=== PATIENT | female | born 1960 | race Two or more races ===

== ENCOUNTER 2024-01-01 16:00 | Outpatient (RCR) | payer MEDICAID, SELFPAY ==
--- NOTE | 2023-12-17 16:06 | PT.ODAYNRPT ---
PT Outpatient Daily Note OP Daily Note Outpatient Physical Therapy Treatment Date: 12/17/23 Visit Reasons: Right shoulder pain Subjective: Pt reports R shoulder is doing ok, has some pain. Objective: Please see flow sheet for ther ex list. Assessment: Pt c/o soreness post IR stretches. Plan: Continue with pOC. Length of Time (minutes) of Treatment: 30 Minutes Procedure Charges Therapeutic Exercise 30 minutes: Yes
--- NOTE | 2023-12-19 18:01 | PT.ODAYNRPT ---
PT Outpatient Daily Note OP Daily Note Outpatient Physical Therapy Treatment Date: 12/19/23 Visit Reasons: Right shoulder pain Subjective: Overall it's doing well Objective: See F/S for therex Assessment: Increased supine reach into FF and abduction with 2 lb DB Plan: Continue with visits to strengthen R shoulder Length of Time (minutes) of Treatment: 30 Minutes Procedure Charges Therapeutic Exercise 30 minutes: Yes
--- NOTE | 2023-12-24 16:06 | PT.ODAYNRPT ---
PT Outpatient Daily Note OP Daily Note Outpatient Physical Therapy Treatment Date: 12/24/23 Visit Reasons: Right shoulder pain Subjective: She can reach higher with less pain and better strength Objective: See F/S for therex Assessment: Increased supine reach into FF and abduction with 2 lb DB Plan: Continue with visits to strengthen R shoulder Length of Time (minutes) of Treatment: 30 Minutes Procedure Charges Therapeutic Exercise 30 minutes: Yes
--- NOTE | 2023-12-26 15:15 | PT.ODAYNRPT ---
PT Outpatient Daily Note OP Daily Note Outpatient Physical Therapy Treatment Date: 12/26/23 Visit Reasons: Right shoulder pain Subjective: She can reach higher with less pain and better strength Objective: See F/S for therex Assessment: Increased supine reach into FF and abduction with 3 lb DB Plan: Continue with visits to strengthen R shoulder Length of Time (minutes) of Treatment: 30 Minutes Procedure Charges Therapeutic Exercise 30 minutes: Yes
--- NOTE | 2023-12-30 17:46 | PT.ODAYNRPT ---
PT Outpatient Daily Note OP Daily Note Outpatient Physical Therapy Treatment Date: 12/30/23 Visit Reasons: Right shoulder pain Subjective: She can reach higher with less pain and better strength Objective: See F/S for therex Assessment: Increased supine reach into FF and abduction with 3 lb DB Plan: Continue with visits to strengthen R shoulder Length of Time (minutes) of Treatment: 30 Minutes Procedure Charges Therapeutic Exercise 30 minutes: Yes
--- NOTE | 2024-01-01 18:33 | PT.ODAYNRPT ---
PT Outpatient Daily Note OP Daily Note Outpatient Physical Therapy Treatment Date: 01/01/24 Visit Reasons: Right shoulder pain Subjective: She can reach higher with less pain and better strength Objective: See F/S for therex Assessment: Increased supine reach into FF and abduction with 3 lb DB Plan: Continue with visits to strengthen R shoulder Length of Time (minutes) of Treatment: 30 Minutes Procedure Charges Therapeutic Exercise 30 minutes: Yes
== END 2024-01-11 23:59 | disposition home or self-care (01) ==
LOC: CPTX 16:00
PROVIDERS: PCP Orthopaedic Surgery; Referring Provider Orthopaedic Surgery; Visit Provider Orthopaedic Surgery
DX: M25.511 Pain in right shoulder (principal); S46.001D Unspecified injury of muscle(s) and tendon(s) of the rotator cuff of right shoulder, subsequent encounter; X50.0XXD Overexertion from strenuous movement or load, subsequent encounter
CPT/HCPCS: 97110

== ENCOUNTER 2024-01-22 16:00 | Outpatient (RCR) | payer MEDICAID, SELFPAY ==
--- NOTE | 2024-01-13 17:10 | PT.ODAYNRPT ---
PT Outpatient Daily Note OP Daily Note Outpatient Physical Therapy Treatment Date: 01/13/24 Visit Reasons: Right shoulder pain Subjective: She can reach higher with less pain and better strength but pain with reaching behind the back. Objective: See F/S for therex Assessment: Increased supine reach into FF and abduction with 3 lb DB. Reaching behind the back to about L4 with shoulder pain Plan: Continue with visits to strengthen R shoulder Length of Time (minutes) of Treatment: 30 Minutes Procedure Charges Therapeutic Exercise 30 minutes: Yes
--- NOTE | 2024-01-15 17:16 | PT.ODAYNRPT ---
PT Outpatient Daily Note OP Daily Note Outpatient Physical Therapy Treatment Date: 01/15/24 Visit Reasons: Right shoulder pain Subjective: She can reach higher with less pain and better strength but pain with reaching behind the back. Objective: See F/S for therex Assessment: Increased supine reach into FF and abduction with 3 lb DB. Reaching behind the back to about L4 with shoulder pain Plan: Continue with visits to strengthen R shoulder Length of Time (minutes) of Treatment: 30 Minutes Procedure Charges Therapeutic Exercise 30 minutes: Yes
--- NOTE | 2024-01-20 16:24 | PT.ODAYNRPT ---
PT Outpatient Daily Note OP Daily Note Outpatient Physical Therapy Treatment Date: 01/20/24 Visit Reasons: Right shoulder pain Subjective: She can reach higher with less pain and better strength but pain with reaching behind the back. Objective: See F/S for therex Assessment: Increased supine reach into FF and abduction with 3 lb DB. Reaching behind the back to about L4 with shoulder pain Plan: Reassess Length of Time (minutes) of Treatment: 30 Minutes Procedure Charges Therapeutic Exercise 30 minutes: Yes
--- NOTE | 2024-01-22 17:06 | PT.ODS1RPT ---
PT OP Progress/Discharge Note Date of Service: 01/22/24 Progress Note/DC Note Progress Note/Discharge Note: DC Note Patient Information Visit Reasons: Right shoulder pain Service Continue Service or Discharge: Discharge Discharge Date: 01/22/24 Status Subjective: She can reach higher with less pain and better strength but pain with reaching behind the back. Objective: See F/S for therex R shoulder ArOM: FF: 145 deg Abd: full ER: 90 deg HBB: to L5 Strength: 4/5 in all planes Assessment: Pt has attended visits with very good progress to meet all therapy goals. Pt has improved AROM in all planes to meet that goal and can reach OH x10 without pain in order to reach tall cabinets. Pt is independent with ADL's and HH chores with good R shoulder strength. She has a theraband and is independent with HEP. Plan: D/C with HEP Procedure Charges Therapeutic Exercise 30 minutes: Yes
== END 2024-02-11 23:59 | disposition home or self-care (01) ==
LOC: CPTX 16:00
PROVIDERS: PCP Orthopaedic Surgery; Referring Provider Orthopaedic Surgery; Visit Provider Orthopaedic Surgery
DX: M25.511 Pain in right shoulder (principal); Z98.890 Other specified postprocedural states; M75.21 Bicipital tendinitis, right shoulder
CPT/HCPCS: 97110

== ENCOUNTER 2024-10-15 08:00 | Day surgery (SDC) | payer MEDICAID, SELFPAY ==
[2024-10-15] VITALS (8 sets, daily range): BP systolic 121–157; BP diastolic 74–104; PULSE 66–88; RESP 13–18; TEMP 36.7–36.9; O2SAT 94–100; BMI 31.6
[2024-10-15] MEDS: BENZOCAINE 20% (Hurricaine) SPRAY 1 DOSE TOP (09:35)
[2024-10-15] MEDS: RINGERS LACTATED 1000 ML 1,000 ML 125 ML IV (09:35)
[2024-10-15] MEDS: fentaNYL CIT INJ 50 mCg/ML AMP 2ML (ASD USE ONLY) IVP (09:40)
[2024-10-15] MEDS: MIDAZOLAM INJ 1 MG/ML VIAL 2 ML (ASD USE ONLY) 2 MG IVP (09:40)
== END 2024-10-15 10:39 | disposition home or self-care (01) ==
PROVIDERS: PCP Nurse Practitioner; Referring Provider Internal Medicine Gastroenterology; Visit Provider Internal Medicine Gastroenterology
PROC: (CPT 43239; principal; 2024-10-15 12:45)
DX: K29.50 Unspecified chronic gastritis without bleeding (principal); K44.9 Diaphragmatic hernia without obstruction or gangrene; K31.89 Other diseases of stomach and duodenum; I10 Essential (primary) hypertension
CPT/HCPCS: 43239; A4649; J1200; J2250; J3010; J7120; A9270

== ENCOUNTER 2024-10-29 07:30 | Day surgery (SDC) | payer MEDICAID, SELFPAY ==
[2024-10-29] VITALS (10 sets, daily range): BP systolic 116–168; BP diastolic 68–95; PULSE 55–67; RESP 12–18; TEMP 36.7–36.8; O2SAT 92–100; BMI 32.5
[2024-10-29] MEDS: RINGERS LACTATED 500 ML 500 ML 20 ML IV (09:09)
[2024-10-29] MEDS: MIDAZOLAM INJ 1 MG/ML VIAL 2 ML (ASD USE ONLY) 2 MG IVP (09:14)
[2024-10-29] MEDS: fentaNYL CIT INJ 50 mCg/ML AMP 2ML (ASD USE ONLY) IVP (09:14)
--- NOTE | 2024-10-29 10:00 | SUR.PHASEII ---
Pt waiting for her ride.
== END 2024-10-29 10:28 | disposition home or self-care (01) ==
PROVIDERS: PCP Nurse Practitioner; Referring Provider Internal Medicine Gastroenterology; Visit Provider Internal Medicine Gastroenterology
PROC: 0DBE8ZX Excision of Large Intestine, Via Natural or Artificial Opening Endoscopic, Diagnostic (ICD-10-PCS; CPT 45380; principal; 2024-10-29 07:30)
DX: D12.5 Benign neoplasm of sigmoid colon (principal); K64.1 Second degree hemorrhoids; I10 Essential (primary) hypertension
CPT/HCPCS: 45385; A4217; J1200; J2250; J3010; J7120